=== PATIENT | female | born 1985 | race Two or more races ===

== ENCOUNTER 2021-11-03 05:25 | Emergency (ER) | payer OTHER ==
[~2021-11-03] VITALS: Ht 152.4 cm; Wt 49.9 kg
[2021-11-03] MEDS ORDERED: NAPROXEN375 MG PO (07:30)
[2021-11-03] MEDS ORDERED: INTESTINEX680 M1 PO (07:30)
[2021-11-03] MEDS ORDERED: CLINDAMYCIN HC300 MG PO (07:30)
== END 2021-11-03 07:47 | disposition home or self-care (01) ==
LOC: ER 05:25 → EMR PED 06:44 → ER 06:44
DX: H66.90 Otitis media, unspecified, unspecified ear (principal); K04.7 Periapical abscess without sinus

== ENCOUNTER 2021-12-29 17:14 | Emergency (ER) | payer OTHER ==
[~2021-12-29] VITALS: Ht 152.4 cm; Wt 48.5 kg
[~2021-12-29 17:14] MED LIST: ACETAMINOPHEN650 M2; CLINDAMYCIN HC300 MG PO; INTESTINEX680 M1 PO; NAPROXEN375 MG PO
[2021-12-29] MEDS ORDERED: ANTIFUNGAL113 GM TOP (20:13)
== END 2021-12-29 20:18 | disposition home or self-care (01) ==
LOC: ER 17:14
DX: B35.4 Tinea corporis (principal)